=== PATIENT | male | born 1945 | race Caucasian/White ===

== ENCOUNTER 2018-02-27 22:01 | Emergency (ER) | payer MEDICARE ==
[2018-02-27] MEDS ORDERED: RX INFO: IV CONTRAST WAS GIVEN 1 EACH MISC MISCELLANE PRN (22:04)
--- NOTE | 2018-02-27 22:09 | ED ---
General Adult HPI - General Stated complaint: Decreased responsiveness Time Seen by Provider: 02/27/18 22:04 Source: EMS, RN notes reviewed Mode of arrival: EMS Limitations: altered mental status, physical limitation - History of Present Illness Initial comments: Patient is a 73-year-old male presenting to the emergency department by EMS for decreased responsiveness. Onset is reported as 9:15 PM, 45 minutes ago. Patient reportedly does have a history of strokes and high blood pressure. Patient reportedly became unresponsive. EMS noticed right-sided weakness and right facial weakness. Patient is nonverbal at this time and does not provide any significant history. - Related Data Home Medications Medication Instructions Recorded Confirmed Aspirin EC [Ecotrin Low Dose] 81 mg PO DAILY 02/27/18 02/27/18 Atorvastatin [Lipitor] 10 mg PO DAILY 02/27/18 02/27/18 Clopidogrel [Plavix] 75 mg PO DAILY 02/27/18 02/27/18 Labetalol HCl 400 mg PO BID 02/27/18 02/27/18 Lisinopril [Zestril] 20 mg PO DAILY 02/27/18 02/27/18 Metoprolol Tartrate [Lopressor] 100 mg PO BID 02/27/18 02/27/18 amLODIPine BESYLATE [Norvasc] 5 mg PO DAILY 02/27/18 02/27/18 traMADol HCL [Ultram] 50 mg PO Q6HR PRN 02/27/18 02/27/18 Allergies Allergy/AdvReac Type Severity Reaction Status Date / Time No Known Allergies Allergy Verified 02/27/18 22:30 Review of Systems ROS Statement: Those systems with pertinent positive or pertinent negative responses have been documented in the HPI. ROS Other: All systems not noted in ROS Statement are negative. Limitations: ROS unobtainable due to patients medical condition Past Medical History Past Medical History: Coronary Artery Disease (CAD), CVA/TIA, Diabetes Mellitus , Hypertension Past Surgical History: Unable to Obtain Smoking Status: Unknown if ever smoked Past Alcohol Use History: Unable to Obtain General Exam Limitations: altered mental status, physical limitation General appearance: alert, other (Patient is nonverbal and does not follow commands. Limited exam.) Head exam: Present: atraumatic Eye exam: Present: normal appearance, other (Limited gaze towards the right, limited exam) ENT exam: Present: normal oropharynx Neck exam: Present: normal inspection Respiratory exam: Present: normal lung sounds bilaterally Cardiovascular Exam: Present: irregular rhythm Expanded Peripheral pulses: 2+: Radial (R), Radial (L), Dorsalis Pedis (R), Dorsalis Pedis (L) GI/Abdominal exam: Present: soft. Absent: tenderness Extremities exam: Present: normal inspection. Absent: pedal edema, calf tenderness Neurological exam: Present: alert, altered Expanded Neurological exam: Present: total aphasia, protecting the airway, other (Unable to do full exam. Unable to assess for sensation. Does not follow commands. Nonverbal.) Cranial nerves: EOM's Intact: Abnormal Right (Limited exam) Motor strength exam: RUE: 2/1 (Very limited exam. Limited muscle strength), LUE : 5 (On limited exam), RLE: 2/1 (Does withdrawal. Does not hold leg up), LLE: 2 /1 (Does withdrawal, does not hold leg up) Eye Response: (4) open spontaneously Motor Response: (4) withdraws to pain Verbal Response: (1) no verbal response Psychiatric exam: Present: other (Nonverbal) Skin exam: Present: normal color. Absent: rash Course Vital Signs 02/27/18 02/27/18 02/27/18 22:05 22:12 22:21 Temperature 98.4 F 98.4 F 98.4 F Pulse Rate 58 L Pulse Rate [ 71 76 Left Pulse Oximetery] Respiratory 16 16 16 Rate Blood Pressure 201/106 191/91 200/116 [Right Arm] O2 Sat by Pulse 96 96 Oximetry 02/27/18 02/27/18 02/27/18 22:29 22:31 22:33 Temperature 98.4 F Pulse Rate Pulse Rate [ 70 74 66 Left Pulse Oximetery] Respiratory 16 16 15 Rate Blood Pressure 172/102 187/103 202/123 [Right Arm] O2 Sat by Pulse 97 98 Oximetry 02/27/18 02/27/18 02/27/18 23:04 23:18 23:33 Temperature 98.4 F 97.4 F L 97.4 F L Pulse Rate Pulse Rate [ 71 71 101 H Left Pulse Oximetery] Respiratory 16 16 16 Rate Blood Pressure 174/102 187/114 191/94 [Right Arm] O2 Sat by Pulse Oximetry - Reevaluation(s) Reevaluation #1: 02/27/18 22:06 Code stroke was called and patient is leaving for computed tomography scan at this time. 02/27/18 22:28 Neuro interventional list did call back and would like call back after CT report. Family is still not present or able to provide consent. did call just now and will be here in 10-15 minutes. She states patient has normal baseline function. 02/27/18 22:31 Dr. Hollins was called and unable to talk at this time because he is in a case. 02/27/18 22:39 Call was received from staff with Dr. Hollins and recommendation was to provide TPA. At this time I do not feel comfortable providing TPA without waiting for family to provide consent and go through exclusion criteria. 02/27/18 22:50 Still waiting on family arrival. TPA will be ordered and held pending family arrival. 02/27/18 22:56 Family is present and would like patient to receive TPA. Exclusion criteria gone over with . is made aware of risks and benefits. Specifically made aware of risks of serious bleeding including risk of and permanent disability from the medication itself. Patient does not have any exclusion criteria and would like patient to have TPA. Additional family member is also present and in agreement. TPA will be provided. Patient will be transferred. 02/27/18 23:22 Case was again discussed with Dr. Hollins who is reviewing CT angios. He is made aware of report and will call back. He is unclear patient will be going to ICU or to the intervention lab at this point. 02/27/18 23:40 Case was discussed with practitioner Cheyenne Bernardo at [facility]. This does include CT results. She is looking for a bed for the patient. EKG Findings - EKG Comments: EKG Findings:: A. fib with a rate of 70. FL 132. QRS 436. QT 470. Normal axis. Septal Q waves. Nonspecific intraventricular block. Q wave in lead III. Repolarization changes. Medical Decision Making - Lab Data Result diagrams: 02/27/18 22:17 02/27/18 22:17 Lab Results 02/27/18 02/27/18 02/27/18 Range/Units 22:04 22:06 22:17 WBC (3.8-10.6) k/uL RBC (4.30-5.90) m/uL Hgb (13.0-17.5) gm/dL Hct (39.0-53.0) % MCV (80.0-100.0) fL MCH (25.0-35.0) pg MCHC (31.0-37.0) g/dL RDW (11.5-15.5) % Plt Count (150-450) k/uL Neutrophils % % Lymphocytes % % Monocytes % % Eosinophils % % Basophils % % Neutrophils # (1.3-7.7) k/uL Lymphocytes # (1.0-4.8) k/uL Monocytes # (0-1.0) k/uL Eosinophils # (0-0.7) k/uL Basophils # (0-0.2) k/uL PT (9.0-12.0) sec INR (<1.2) APTT (22.0-30.0) sec Sodium (137-145) mmol/L Potassium (3.5-5.1) mmol/L Chloride (98-107) mmol/L Carbon Dioxide (22-30) mmol/L Anion Gap mmol/L BUN (9-20) mg/dL Creatinine (0.66-1.25) mg/dL Est GFR (CKD-EPI)AfAm (>60 ml/min/1.73 sqM) Est GFR (CKD-EPI)NonAf (>60 ml/min/1.73 sqM) Glucose (74-99) mg/dL POC Glucose (mg/dL) 38 L 134 H (75-99) mg/dL POC Glu Entry Level Account Executive ID Calcium (8.4-10.2) mg/dL Total Bilirubin (0.2-1.3) mg/dL AST (17-59) U/L ALT (21-72) U/L Alkaline Phosphatase (38-126) U/L Total Creatine Kinase 251 H (55-170) U/L CK-MB (CK-2) 3.4 H* (0.0-2.4) ng/mL CK-MB (CK-2) Rel Index 1.4 Troponin I 0.028 (0.000-0.034) ng/mL Total Protein (6.3-8.2) g/dL Albumin (3.5-5.0) g/dL 05/01/18 05/01/18 05/01/18 Range/Units 22:17 22:17 22:17 WBC 7.7 (3.8-10.6) k/uL RBC 4.40 (4.30-5.90) m/uL Hgb 13.1 (13.0-17.5) gm/dL Hct 39.1 (39.0-53.0) % MCV 88.8 (80.0-100.0) fL MCH 29.9 (25.0-35.0) pg MCHC 33.6 (31.0-37.0) g/dL RDW 15.4 (11.5-15.5) % Plt Count 193 (150-450) k/uL Neutrophils % 58 % Lymphocytes % 31 % Monocytes % 6 % Eosinophils % 4 % Basophils % 1 % Neutrophils # 4.5 (1.3-7.7) k/uL Lymphocytes # 2.4 (1.0-4.8) k/uL Monocytes # 0.4 (0-1.0) k/uL Eosinophils # 0.3 (0-0.7) k/uL Basophils # 0.0 (0-0.2) k/uL PT 10.3 (9.0-12.0) sec INR 1.1 (<1.2) APTT 24.8 (22.0-30.0) sec Sodium 145 (137-145) mmol/L Potassium 3.6 (3.5-5.1) mmol/L Chloride 105 (98-107) mmol/L Carbon Dioxide 28 (22-30) mmol/L Anion Gap 12 mmol/L BUN 31 H (9-20) mg/dL Creatinine 0.70 (0.66-1.25) mg/dL Est GFR (CKD-EPI)AfAm >90 (>60 ml/min/1.73 sqM) Est GFR (CKD-EPI)NonAf >90 (>60 ml/min/1.73 sqM) Glucose 114 H (74-99) mg/dL POC Glucose (mg/dL) (75-99) mg/dL POC Glu Entry Level Account Executive ID Calcium 9.3 (8.4-10.2) mg/dL Total Bilirubin 1.0 (0.2-1.3) mg/dL AST 23 (17-59) U/L ALT 23 (21-72) U/L Alkaline Phosphatase 61 (38-126) U/L Total Creatine Kinase (55-170) U/L CK-MB (CK-2) (0.0-2.4) ng/mL CK-MB (CK-2) Rel Index Troponin I (0.000-0.034) ng/mL Total Protein 6.4 (6.3-8.2) g/dL Albumin 3.9 (3.5-5.0) g/dL - Radiology Data Radiology results: image reviewed (Computed tomography scan the brain shows old left temporal infarct. Chronic small vessel ischemia. Cerebral atrophy. No hemorrhage.) Critical Care Time Critical Care Time: Yes Total Critical Care Time: 45 Disposition Clinical Impression: Cerebrovascular accident Disposition: OTHER INSTITUTION NOT DEFINED Is patient prescribed a controlled substance at d/c from ED?: No Referrals: None,Stated [REFERRING] - 1-2 days Time of Disposition: 22:57 - Out of Hospital Transfer - Req. Specs Out of Hospital Transfer - Requested Specifics: Other Emergency Center
[2018-02-27 22:11] LABS: Glucose,Whole Blood 38 mg/dL (75-99)
[2018-02-27 22:11] LABS: Glucose,Whole Blood 134 mg/dL (75-99)
--- NOTE | 2018-02-27 22:25 | CT ---
EXAMINATION TYPE: CT brain wo con for TPA DATE OF EXAM: 02/27/2018 COMPARISON: NONE HISTORY: Right sided weakness CT DLP: 826.4 mGycm Automated exposure control for dose reduction was used. FINDINGS: There is hypodensity in the left temporal lobe consistent with an old infarct. There is patchy hypode nsity in the periventricular white matter. There is no mass effect nor midline shift. There is no sig n of intracranial hemorrhage. The calvarium is intact. There is cerebral atrophy. IMPRESSION: OLD LEFT TEMPORAL LOBE INFARCT. CHRONIC SMALL VESSEL ISCHEMIA. CEREBRAL ATROPHY. NO HEMORRHAGE.
[2018-02-27 22:30] LABS: Basophils % (A) 1 %; Eosinophils # (A) 0.3 k/uL (0-0.7); Eosinophils % (A) 4 %; HCT 39.1 % (39.0-53.0); HGB 13.1 gm/dL (13.0-17.5); Lymphocytes # (A) 2.4 k/uL (1.0-4.8); Lymphocytes % (A) 31 %; MCH 29.9 pg (25.0-35.0); MCHC 33.6 g/dL (31.0-37.0); MCV 88.8 fL (80.0-100.0); Mean Platelet Volume 8.4; Monocytes # (A) 0.4 k/uL (0-1.0); Monocytes % (A) 6 %; Neutrophils # (A) 4.5 k/uL (1.3-7.7); Neutrophils % (A) 58 %; Platelet Count 193 k/uL (150-450); RDW 15.4 % (11.5-15.5); WBC 7.7 k/uL (3.8-10.6)
[2018-02-27] MEDS ORDERED: LABETALOL 5 MG/ML VIAL MDV IVP STA ×2 (22:37→23:31)
[2018-02-27 22:38] LABS: ALT 23 U/L (21-72); AST 23 U/L (17-59); Albumin 3.9 g/dL (3.5-5.0); Alkaline Phosphatase 61 U/L (38-126); Anion Gap 12 mmol/L; Blood Urea Nitrogen 31 mg/dL (9-20); Calcium 9.3 mg/dL (8.4-10.2); Carbon Dioxide 28 mmol/L (22-30); Chloride 105 mmol/L (98-107); Glucose 114 mg/dL (74-99); Potassium 3.6 mmol/L (3.5-5.1); Sodium 145 mmol/L (137-145); Total Protein 6.4 g/dL (6.3-8.2)
[2018-02-27 22:40] LABS: INR 1.1 (<1.2); Partial Thromboplastin Time 24.8 sec (22.0-30.0); Prothrombin Time 10.3 sec (9.0-12.0)
--- NOTE | 2018-02-27 22:43 | CT ---
EXAMINATION TYPE: CT angio head neck DATE OF EXAM: 02/27/2018 HISTORY: Right sided weakness COMPARISON: NONE CT DLP: 293.7 mGycm. Automated Exposure Control for Dose Reduction was Utilized. TECHNIQUE: CTA scan of the neck is performed with IV Contrast, patient injected with 65 mL of Isovue 370, axial images are obtained, coronal and sagittal reformatted images are reviewed. Three-D recons tructed images are created on an independent workstation and reviewed. 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 There is no dissection. There appears to be normal branching pattern of the great vessels on the aortic arch. There is bilateral patency of the v ertebral arteries. Vertebral arteries are symmetric. There is some fusiform stenosis at the origin of the left internal carotid artery. There is minimal plaque at the origin right internal carotid arter y. There is arterial flow in the common internal and external carotid arteries bilaterally. There is normal contrast opacification of the venous sinuses. There is arterial flow in the anterior middle and posterior cerebral arteries. There is hypodensity in the left posterior temporal lobe cons istent with an old infarct. I see no evidence of intracranial aneurysm or neovascularity. There is no mass effect. 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 No evidence of hemodynamically significant stenosis. There is approximate 40% stenosis at the origin of the left internal carotid artery. There is approximate 25% stenosis at the origin of the right int ernal carotid artery.
--- NOTE | 2018-02-27 22:45 | XR ---
EXAMINATION TYPE: XR chest 1V DATE OF EXAM: 02/27/2018 COMPARISON: NONE HISTORY: Altered mental status. TECHNIQUE: Single frontal view of the chest is obtained. FINDINGS: There is cardiomegaly. There is some pulmonary vascular congestion. There is coarsening of interstitial markings. There is probably some infiltrate in the right lower lobe. Thoracic aorta is atheromatous. There is aneurysm of the aortic arch. This is evident on the CT scan today. There are c hest leads. I see no pleural effusion. IMPRESSION: Cardiomegaly and pulmonary fibrosis. There is mild pulmonary congestion without overt he art failure. Aortic arch aneurysm. No definite pleural fluid to suggest heart failure. There is proba deacon some right lower lobe pneumonia.
[2018-02-27] MEDS ORDERED: tPA (Alteplase) PER PHARMACY 1 EACH MISC MISCELLANE PRN (22:50)
[2018-02-27 22:54] LABS: Troponin I 0.028 ng/mL (0.000-0.034)
[2018-02-27] MEDS ORDERED: ALTEPLASE BOLUS 8 MG in EMPTY SYRINGE 1 SYR IV STA (22:55)
[2018-02-27 22:58] LABS: Creatine Kinase MB 3.4 ng/mL (0.0-2.4)
[2018-02-27] MEDS ORDERED: ALTEPLASE 75 MG in EMPTY BAG 1 BAG IV STA (22:58)
[2018-02-27] MEDS ORDERED: SODIUM CHLORIDE 0.9% 1,000 ML IV STA (23:11)
[2018-02-27 23:24] VITALS: RESP 16
[2018-02-27 23:43] VITALS: TEMP 97.4
[2018-02-27 23:44] VITALS: BP 191/94; PULSE 101
== END 2018-02-27 23:50 | disposition short-term general hospital (02) ==
LOC: EC 22:01
DX: I63.9 Cerebral infarction, unspecified (principal); I67.82 Cerebral ischemia; G31.9 Degenerative disease of nervous system, unspecified; R41.82 Altered mental status, unspecified; I10 Essential (primary) hypertension; I25.10 Atherosclerotic heart disease of native coronary artery without angina pectoris; Z79.02 Long term (current) use of antithrombotics/antiplatelets; Z79.82 Long term (current) use of aspirin; Z79.899 Other long term (current) drug therapy
CPT/HCPCS: 36415; 93005; 80053; 82550; 82553; 84484; 85025; 85610; 85730; 71045; 70496; 70450; 70498; 99291; 96365; 96375; 96376; J2997; Q9967